=== PATIENT | male | born 1960 | race Caucasian/White ===

== ENCOUNTER 2017-11-15 20:08 | Emergency (ER) | payer OTHER ==
[2017-11-15] VITALS (7 sets, daily range): BP systolic 114–187; BP diastolic 62–111; PULSE 77–112; RESP 16–20; TEMP 97.7; O2SAT 96–98
[~2017-11-15] VITALS: Ht 172.7 cm; Wt 80.8 kg
[~2017-11-15 20:08] MED LIST: FURO20 PO; HYDR-3133 PO; LACT20SO4 PO; LEVA500T33 PO; OMEP20TA PO; RIFA550 PO; SPIR50 PO
[2017-11-15] MEDS ORDERED: TACR1CAP PO ×2 (20:27)
[2017-11-15] MEDS ORDERED: hydrALAZINE HCL 20 MG/ML VIAL IV PUSH ONE ×2 (20:45→21:45)
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
[2017-11-15 20:52] LABS: AUTOMATED NEUTROPHIL # 6.8 TH/MM3 (1.8-7.7); BASOPHIL # 0.2 TH/MM3 (0-0.2); BASOPHIL % 1.9 % (0.0-2.0); EOSINOPHIL % 0.5 % (0.0-4.0); HEMATOCRIT 41.6 % (39.0-51.0); HEMOGLOBIN 14.1 GM/DL (13.0-17.0); LYMPH % 10.3 % (9.0-44.0); LYMPHOCYTE # 0.9 TH/MM3 (1.0-4.8); MEAN CELL VOLUME 89.7 FL (80.0-100.0); MEAN CORPUSCULAR HEMOGLOBIN 30.5 PG (27.0-34.0); MEAN PLATELET VOLUME 7.6 FL (7.0-11.0); MONOCYTE # 0.5 TH/MM3 (0-0.9); NEUT % 81.3 % (16.0-70.0); PLATELET COUNT 213 TH/MM3 (150-450); RED BLOOD COUNT 4.63 MIL/MM3 (4.50-5.90); RED CELL DISTRIBUTION WIDTH 12.4 % (11.6-17.2); WHITE BLOOD COUNT 8.4 TH/MM3 (4.0-11.0)
[2017-11-15] MEDS ORDERED: ONDANSETRON HCL 4 MG/2 ML VIAL IV ONE (21:00)
[2017-11-15 21:04] LABS: CHLORIDE 102 MEQ/L (98-107); SODIUM (NA) 135 MEQ/L (136-145)
[2017-11-15 21:07] LABS: ALBUMIN 3.9 GM/DL (3.4-5.0); BICARBONATE 25.7 MEQ/L (21.0-32.0); BLOOD UREA NITROGEN 26 MG/DL (7-18); CALCIUM 8.4 MG/DL (8.5-10.1); GLUCOSE,RANDOM 107 MG/DL (74-106)
[2017-11-15 21:10] LABS: ALT (GPT) 43 U/L (12-78); AST (GOT) 34 U/L (15-37)
[2017-11-15 21:11] LABS: GLOMERULAR FILTRATION RATE 45 ML/MIN (>89)
[2017-11-15 21:12] LABS: TOTAL BILIRUBIN ADULT 0.6 MG/DL (0.2-1.0); TOTAL PROTEIN 8.4 GM/DL (6.4-8.2)
[2017-11-15 21:13] LABS: ALKALINE PHOSPHATASE 115 U/L (45-117)
--- NOTE | 2017-11-15 21:23 | RADRPT ---
EXAM DATE/TIME: 11/15/2017 21:02 [facility] COMPARISON: CT BRAIN W/O CONTRAST, July 15, 2014, 19:19. INDICATIONS : Headache, hypertension and vomiting. RADIATION DOSE: 64.61 CTDIvol (mGy) MEDICAL HISTORY : Seizures. Hypertension. Gastroesophageal reflux disease. SURGICAL HISTORY : Cholecystectomy. Umbilical hernia repair. ENCOUNTER: Initial ACUITY: 1 week PAIN SCALE: 4/10 LOCATION: cranial TECHNIQUE: Multiple contiguous axial images were obtained of the head. Using automated exposure control and adj ustment of the mA and/or kV according to patient size, radiation dose was kept as low as reasonably a chievable to obtain optimal diagnostic quality images. DICOM format image data is available electro nically for review and comparison. FINDINGS: There is no evidence for intracranial hemorrhage, mass effect, mass lesions, edema, or extra-axial fl uid collections. The visualized bony structures appear intact. The ventricles are normal size for t he patient's age. There are no signs of acute infarction for technique. There is significant opacifi cation of the left maxillary sinus. CONCLUSION: Left maxillary sinusitis. Tomer Mota MD on November 15, 2017 at 21:20 Board Certified Radiologist. This report was verified electronically.
[2017-11-15] MEDS ORDERED: HYDROmorphone HCL PF 2 MG/ML VIAL IV PUSH ONE (21:45)
[2017-11-15] MEDS ORDERED: ENALAPRILAT 2.5 MG/2 ML VIAL IV PUSH ONE (21:45)
[2017-11-15] MEDS ORDERED: PROCHLORPERAZINE INJ 10 MG/2 ML VIAL IV PUSH ONE (21:45)
[2017-11-15] MEDS ORDERED: PROC10TA PO (22:39)
== END 2017-11-15 22:49 | disposition home or self-care (01) ==
LOC: PHED 20:08
DX: I10 Essential (primary) hypertension (principal); G43.909 Migraine, unspecified, not intractable, without status migrainosus; F32.9 Major depressive disorder, single episode, unspecified; K21.9 Gastro-esophageal reflux disease without esophagitis; Z94.4 Liver transplant status; Z87.891 Personal history of nicotine dependence
CPT/HCPCS: 70450; 80053; 85025; 96374; 96375; 96376; 99285; J0360; J0780; J1170; J2405